=== PATIENT | female | born 1950 | race Caucasian/White ===

== ENCOUNTER 2017-06-14 12:18 | Emergency (ER) | payer MEDICARE | END 2017-06-14 16:07 | disposition home or self-care (01) | LOC: D.ER 12:18 | DX: S02.5XXA Fracture of tooth (traumatic), initial encounter for closed fracture (principal); S02.92XA Unspecified fracture of facial bones, initial encounter for closed fracture; W01.0XXA Fall on same level from slipping, tripping and stumbling without subsequent striking against object, initial encounter; Y93.89 Activity, other specified; Y92.89 Other specified places as the place of occurrence of the external cause ==